=== PATIENT | female | born 2000 | race Caucasian/White ===

== ENCOUNTER 2020-12-03 16:47 | Emergency (ER) | payer BC, SELFPAY ==
[2020-12-03 16:50] VITALS: BP 131/85; PULSE 85; RESP 18; TEMP 36.6; O2SAT 99
--- NOTE | 2020-12-03 17:22 | ED.GENADULT ---
HPI - General Adult General Chief complaint: Unspecified Stated complaint: nosering stuck in nasal cavity Time Seen by Provider: 12/03/20 17:08 Source: patient, RN notes reviewed and old records reviewed History of Present Illness HPI narrative: 20-year-old female presents to emergency department for foreign body sensation in left nostril for the past 3 months. Patient states she got part of her nose ring stuck in the left nostril about 3 months ago. She recently got insurance, which prompted her to come to the emergency department. She states she sometimes gets some nasal congestion and bloody nose when she uses a Q-tip. No cough or sore throat. No chest pain or shortness of breath. Related Data Allergies Allergy/AdvReac Type Severity Reaction Status Date / Time No Known Allergies Allergy Unverified 12/14/15 13:21 Review of Systems Review of Systems: Narrative: CONSTITUTIONAL: Denies fever, chills, or sweats. EYES: Denies visual changes, redness, or discharge. ENT: Reports foreign body in left nostril, no rhinorrhea or congestion or sore throat CARDIOVASCULAR: Denies chest pain, palpitations, or edema. RESPIRATORY: Denies cough or dyspnea. GASTROINTESTINAL: Denies abdominal pain, nausea, vomiting, or diarrhea. GENITOURINARY: Denies dysuria or hematuria. SKIN: Denies rash or itching. MUSCULOSKELETAL: Denies back pain, joint pain, or myalgia. NEUROLOGIC: Denies headache, numbness, dizziness, or weakness. PSYCHIATRIC: Denies anxiety or depression. All systems reviewed & are unremarkable except as noted in HPI and below (ROS) [facility] Family History Family History Other Acute myocardial infarction Carcinoma of colon Social History Social History Smoking status: Never smoker Second hand tobacco smoke exposure: No Alcohol intake: never Gender identity (if verbalized by the patient): Female Exam Narrative: Exam Narrative: GENERAL: Well-appearing, well-nourished, and in no acute distress. HEAD: Normocephalic, atraumatic. EYES: PERRLA and EOMI. ENT: Nares clear, no rhinorrhea or epistaxis. Mucous membranes moist. Cannot appreciate a foreign body in left nostril. NECK: Supple. CHEST: Clear to auscultation. No respiratory distress. HEART: Regular rate and rhythm. No murmur heard. Normal peripheral pulses. ABDOMEN: Soft, nontender, nondistended, normal active bowel sounds. EXTREMITIES: Normal range of motion. No edema. SKIN: Warm, dry, no rash. NEURO: No focal deficits. Alert and oriented x3. PSYCH: Normal mood and affect. Course Vital Signs Vital signs: Vital Signs Temperature 36.6 C 12/03/20 16:50 Pulse Rate 85 12/03/20 16:50 Respiratory Rate 18 12/03/20 16:50 Blood Pressure 131/85 12/03/20 16:50 Pulse Oximetry 99 12/03/20 16:50 Temperature 36.6 C 12/03/20 16:50 Pulse Rate 85 12/03/20 16:50 Respiratory Rate 18 12/03/20 16:50 Blood Pressure 131/85 12/03/20 16:50 Pulse Oximetry 99 12/03/20 16:50 Medical Decision Making MDM Narrative Medical decision making narrative: Use nasal speculum, unable to see a foreign body in left nostril. Patient will need ENT to follow-up before scope of left nostril to visualize foreign body and removal. Medical Records Medical records reviewed: Yes I reviewed the external patient's medical records. Vital Signs Vital Signs: Vital Signs Temperature 36.6 C 12/03/20 16:50 Pulse Rate 85 12/03/20 16:50 Respiratory Rate 18 12/03/20 16:50 Blood Pressure 131/85 12/03/20 16:50 Pulse Oximetry 99 12/03/20 16:50 Temperature 36.6 C 12/03/20 16:50 Pulse Rate 85 12/03/20 16:50 Respiratory Rate 18 12/03/20 16:50 Blood Pressure 131/85 12/03/20 16:50 Pulse Oximetry 99 12/03/20 16:50 Discharge Plan Discharge Clinical Impression: Foreign body in nostril Qualifiers: Encounter type: initial encounter Rafat
== END 2020-12-03 18:12 | disposition home or self-care (01) ==
LOC: ANHED 17:52
PROVIDERS: Emergency Provider Emergency Medicine; PCP Family Medicine
DX: T17.1XXA Foreign body in nostril, initial encounter (principal)
CPT/HCPCS: 99281

== ENCOUNTER 2021-03-05 23:30 | Emergency (ER) | payer BC, SELFPAY ==
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
[2021-03-05 23:35] VITALS: BP 142/88; PULSE 103; RESP 18; TEMP 36.9; O2SAT 99
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
[2021-03-06 01:15] VITALS: BP 139/83; PULSE 91; RESP 18; O2SAT 97
== END 2021-03-06 01:17 | disposition home or self-care (01) ==
PROVIDERS: Emergency Provider Emergency Medicine; PCP Family Medicine
DX: S60.221A Contusion of right hand, initial encounter (principal); W22.8XXA Striking against or struck by other objects, initial encounter
CPT/HCPCS: 73130; 99283

== ENCOUNTER 2021-06-05 04:07 | Emergency (ER) | payer BC, SELFPAY ==
[2021-06-05 04:26] VITALS: BP 119/79; PULSE 89; RESP 18; TEMP 36.6; O2SAT 98
--- NOTE | 2021-06-05 04:56 | ED.GENADULT ---
HPI - General Adult General Chief complaint: Unspecified Stated complaint: abd pain, itchy throat, lice? Time Seen by Provider: 06/05/21 04:35 History of Present Illness HPI narrative: Patient is a 21-year-old female who presents ER with multiple complaints. First complaint is that she has had a sore throat for the last month. Is associated with white blisters or exudate. No fevers or chills or sweats. No difficulty breathing or swallowing. No known sick contacts. Has not been seen by a physician for this complaint. Patient also reports that her feet are itchy and peeling. This has been occurring over the last couple days. She is tried no medications. Lastly she is concerned that she may have fleas or lice because she is around a another individual 7 hours ago who looks like he was itching himself. Patient has seen no bugs on herself. She reports she often thinks that she has bugs on herself and has bug bomb to her room. This typically worsens after using methamphetamine. Her last use was tonight. Related Data Allergies Allergy/AdvReac Type Severity Reaction Status Date / Time No Known Allergies Allergy Verified 12/23/20 13:42 Review of Systems Review of Systems: All systems reviewed & are unremarkable except as noted in HPI and below Constitutional: Constitutional: Denies chills and Denies fever(s) ENT: Denies nasal congestion, Reports sore throat, Denies throat swelling and Denies tongue swelling Gastrointestinal: Gastrointestinal: Denies abdominal pain, Denies nausea and Denies vomiting Integumentary/Breasts: Skin/Breast: Reports dry skin, Denies new lesions, Denies sores, Denies unusual bruising and Denies wounds PMFSH Past Medical History Medical History (Updated 06/05/21 @ 05:03 by Isidro Rich MD) Acne vulgaris Acute sinusitis Bilateral breast lump Breast fibroadenoma Cystic acne vulgaris Fibrocystic breast Lower respiratory infection Obesity Recurrent AOM (acute otitis media) of both ears Family History Family History Other Acute myocardial infarction Carcinoma of colon Social History Social History (Updated 06/05/21 @ 04:59 by Isidro Rich MD) Smoking status: Never smoker Second hand tobacco smoke exposure: No Alcohol intake: never Substance use type: methamphetamine Gender identity (if verbalized by the patient): Female Exam Narrative: GENERAL: Well-appearing, well-nourished, and in no acute distress. HEAD: Normocephalic, atraumatic. EYES: PERRL and EOMI. ENT: Mucous membranes moist. Normal-appearing posterior oropharynx without tonsillar hypertrophy or exudate. Uvula midline without edema. CHEST: Clear to auscultation. No respiratory distress. HEART: Regular rate and rhythm. Normal peripheral pulses. ABDOMEN: Soft, nontender, nondistended. EXTREMITIES: Normal range of motion. No edema. Questionable development of athlete's foot with some dried peeling skin along the plantar aspect of his foot. SKIN: Warm, dry, no rash. No bug bites or infestation of lice. NEURO: Alert and oriented x3. PSYCH: Normal mood and affect. Very mild paranoia. Course Course Emergency Course: Discharge home. Recommend discontinuing methamphetamine use and to start using Lotrimin. Vital Signs Vital signs: Vital Signs Temperature 97.9 F 06/05/21 04:26 Pulse Rate 89 06/05/21 04:26 Respiratory Rate 18 06/05/21 04:26 Blood Pressure 119/79 06/05/21 04:26 Pulse Oximetry 98 06/05/21 04:26 Temperature 97.9 F 06/05/21 04:26 Pulse Rate 89 06/05/21 04:26 Respiratory Rate 18 06/05/21 04:26 Blood Pressure 119/79 06/05/21 04:26 Pulse Oximetry 98 06/05/21 04:26 Medical Decision Making Vital Signs Vital Signs: Vital Signs Temperature 97.9 F 06/05/21 04:26 Pulse Rate 89 06/05/21 04:26 Respiratory Rate 18 06/05/21 04:26 Blood Pressure 119/79 06/05/21 04:26 Pulse Oximetry 98 09/2
== END 2021-06-05 05:38 | disposition home or self-care (01) ==
LOC: ANHED 05:05
PROVIDERS: Emergency Provider Emergency Medicine; PCP Family Medicine
DX: B35.3 Tinea pedis (principal); F22 Delusional disorders; E66.9 Obesity, unspecified; Z68.29 Body mass index [BMI] 29.0-29.9, adult
CPT/HCPCS: 99283

== ENCOUNTER 2021-06-13 07:31 | Emergency (ER) | payer BC, SELFPAY ==
[2021-06-13 07:42] VITALS: BP 133/83; PULSE 106; RESP 16; TEMP 36.4; O2SAT 100
[2021-06-13 07:58] VITALS: BP 139/93; PULSE 119; RESP 18; TEMP 36.8; O2SAT 100
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
--- NOTE | 2021-06-13 10:36 | PC.NURSE ---
pt refusing Chest Xray, informed Lavelle PA
[2021-06-13 10:45] LABS: Basophils Percent Auto 0.4 % (0.2-1.2); Eosinophils Absolute Auto 0.1 K/mm3 (0-0.3); Eosinophils Percent Auto 1.2 % (0-4.4); Hematocrit 44.7 % (37.0-47.0); Hemoglobin 15.1 g/dL (12.0-15.0); Immature Granulocyte Absolute 0.04 K/mm3 (0.00-0.031); Immature Granulocyte Percent A 0.4 % (0-0.5); Lymphocytes Absolute Auto 2.08 K/mm3 (0.9-3.2); Lymphocytes Percent Auto 22.1 % (18.3-44.2); Mean Corpuscular HGB Conc 33.8 g/dl (32-36); Mean Corpuscular Hemoglobin 31.5 pg (26-34); Mean Corpuscular Volume 93.1 fl (80-100); Mean Platelet Volume 10.6 fl (7.4-10.4); Monocytes Absolute Auto 0.7 K/mm3 (0.1-0.6); Monocytes Percent Auto 7.3 % (2.6-8.5); Neutrophils Absolute Auto 6.5 K/mm3 (1.3-6.7); Neutrophils Percent Auto 68.6 % (45.5-73.1); Platelet Count Result 320 k/mm3 (150-375); Red Cell Distribution Width 12.4 % (11.5-14.5); White Blood Count 9.4 K/mm3 (4.5-10.0)
--- NOTE | 2021-06-13 10:50 | PC.NURSE ---
Refusing xray and ekg due to cost. MALKA waldrop.
[2021-06-13 10:56] LABS: Alanine Aminotransferase 12 U/L (4-35); Alkaline Phosphatase 45 U/L (38-126); Anion Gap 11 mmol/L (8-16); Aspartate Amino Transferase 22 U/L (14-36); Bilirubin,Total 0.8 mg/dL (0.2-1.3); Blood Urea Nitrogen 14 mg/dL (7-17); Calcium 9.5 mg/dL (8.4-10.2); Carbon Dioxide 25 mmol/L (22-30); Chloride 103 mmol/L (98-107); Estimated CRCL calculation 113 ml/min; Estimated Glomerular Filt Rate > 60; Glucose 91 mg/dL (65-110); Potassium 3.5 mmol/L (3.4-5.0); Sodium 139 mmol/L (137-145)
[2021-06-13] MEDS: LORazepam (*CRX) 1 MG TABLET PO (11:02)
[2021-06-13 11:08] LABS: Troponin I < 0.012 ng/mL (0.000-0.034)
[2021-06-13 11:09] LABS: Acetaminophen < 10 ug/mL (10-30); Ethanol < 10 mg/dL (<10); Salicylate < 1.0 mg/dL (2-20)
[2021-06-13 11:31] LABS: Add Urine Microscopic? YES; Appearance Urine Clear (Clear); Bilirubin Urine Negative (Negative); Blood Urine Negative (Negative); Color Urine Yellow (Yellow); Glucose Urine UA Negative (Negative); Ketones Urine Trace mg/dL (Negative); Leukocyte Esterase Ur Trace LEU/UL (Negative); Mucus Urine Rare /lpf; Nitrate Urine Negative (Negative); Protein Urine 1+ mg/dL (Negative); Specific Grav Ur 1.027 (1.001-1.035); Squamous Epithelial Cell Urine Many /hpf (Few); Urobilinogen Urine Negative mg/dL (<2.0); WBC Urine 0-3 /hpf
[2021-06-13 11:39] LABS: Barbiturate Screen Urine Negative (Negative); Benzodiazepines Screen Urine Negative (Negative)
[2021-06-13 11:52] LABS: Cannabinoid Screen Urine Positive (Negative); Cocaine Screen Urine Positive (Negative); Methadone Screen Urine Negative (Negative); Opiate Screen Urine Negative (Negative); Phencyclidine Screen Urine Negative (Negative)
[2021-06-13 12:05] LABS: Amphetamine Screen Urine Positive (Negative)
[2021-06-13 17:07] VITALS: BP 113/84; PULSE 107; RESP 18; O2SAT 100
== END 2021-06-13 17:09 | disposition home or self-care (01) ==
PROVIDERS: Emergency Provider Nurse Practitioner; PCP Family Medicine
DX: F19.10 Other psychoactive substance abuse, uncomplicated (principal); E66.9 Obesity, unspecified; Z68.28 Body mass index [BMI] 28.0-28.9, adult; F60.9 Personality disorder, unspecified; N60.19 Diffuse cystic mastopathy of unspecified breast
CPT/HCPCS: 36415; 80053; 80307; 81001; 84443; 84484; 85025; 99284; A9270

== ENCOUNTER 2021-07-04 12:58 | Emergency (ER) | payer BC, SELFPAY ==
[2021-07-04] VITALS (19 sets, daily range): BP systolic 103–116; BP diastolic 68–96; PULSE 78–157; RESP 8–20; O2SAT 100
--- NOTE | ~2021-07-04 | XR_ITS ---
EXAMINATION: XR chest 1V portable INDICATION: Altered mental status and chest pain TECHNIQUE: Portable AP chest at 1348 hours COMPARISON: None available FINDINGS: The lungs are free of acute opacities. There is no pleural effusion or pneumothorax. The ca rdiomediastinal silhouette is normal. The visualized bones and soft tissues are unremarkable. IMPRESSION: 1. No acute cardiopulmonary abnormality. Reviewed, dictated and finalized at location A.
--- NOTE | 2021-07-04 13:06 | ECG_ITS ---
Measurements Intervals [place] Rate: 118 P: 71 WV: 143 QRS: 45 QRSD: 85 T: 37 QT: 349 QTc: 489 Interpretive Statements SINUS TACHYCARDIA POSSIBLE LEFT ATRIAL ENLARGEMENT ST ELEVATION IN ANTEROLATERAL LEADS- PROBABLY EARLY REPOLARIZATION ABNORMALITY BASELINE ARTIFACT- I, II, III, AVR, AVL, AVF, V1, V3-V6 ABNORMAL ECG Electronically Signed On 07-04-2021 16:21:46 CDT by Zachariah Rai D.O.
--- NOTE | 2021-07-04 13:29 | PC.NURSE ---
Dr Stiles at bedside
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
[2021-07-04 13:49] LABS: Glucose Point of Care 85 mg/dl (65-105)
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
[2021-07-04 14:06] LABS: Barbiturate Screen Urine Negative (Negative); Benzodiazepines Screen Urine Negative (Negative)
[2021-07-04] MEDS: SODIUM CHLORIDE 0.9% IV 1,000 ML 999 ML IV CONT (14:09)
[2021-07-04] MEDS: LORazepam INJ (*CRX) 2 MG/ML VIAL 0.5 MG IV PUSH (14:09)
[2021-07-04 14:14] LABS: Basophils Absolute Auto 0.1 K/mm3 (0.0-0.1); Basophils Percent Auto 0.6 % (0.2-1.2); Eosinophils Percent Auto 0.2 % (0-4.4); Hematocrit 43.8 % (37.0-47.0); Hemoglobin 15.2 g/dL (12.0-15.0); Immature Granulocyte Absolute 0.03 K/mm3 (0.00-0.031); Immature Granulocyte Percent A 0.2 % (0-0.5); Lymphocytes Absolute Auto 2.14 K/mm3 (0.9-3.2); Lymphocytes Percent Auto 17.1 % (18.3-44.2); Mean Corpuscular HGB Conc 34.7 g/dl (32-36); Mean Corpuscular Hemoglobin 31.7 pg (26-34); Mean Corpuscular Volume 91.4 fl (80-100); Mean Platelet Volume 10.2 fl (7.4-10.4); Monocytes Absolute Auto 0.8 K/mm3 (0.1-0.6); Monocytes Percent Auto 6.5 % (2.6-8.5); Neutrophils Absolute Auto 9.4 K/mm3 (1.3-6.7); Neutrophils Percent Auto 75.4 % (45.5-73.1); Platelet Count Result 414 k/mm3 (150-375); Red Blood Count 4.79 M/mm3 (4.2-5.4); Red Cell Distribution Width 12.2 % (11.5-14.5); White Blood Count 12.5 K/mm3 (4.5-10.0)
[2021-07-04 14:19] LABS: Cannabinoid Screen Urine Positive (Negative); Cocaine Screen Urine Negative (Negative); Methadone Screen Urine Negative (Negative); Opiate Screen Urine Negative (Negative); Phencyclidine Screen Urine Negative (Negative)
[2021-07-04 14:25] LABS: Lactic Acid Reflex 1.6 mmol/L (0.7-2.1)
[2021-07-04 14:27] LABS: Alanine Aminotransferase 11 U/L (4-35); Alkaline Phosphatase 53 U/L (38-126); Anion Gap 16 mmol/L (8-16); Aspartate Amino Transferase 20 U/L (14-36); Blood Urea Nitrogen 10 mg/dL (7-17); Calcium 10.1 mg/dL (8.4-10.2); Carbon Dioxide 19 mmol/L (22-30); Chloride 107 mmol/L (98-107); Creatine Kinase 60 U/L (30-135); Estimated CRCL calculation 81 ml/min; Estimated Glomerular Filt Rate > 60; Glucose 92 mg/dL (65-110); Potassium 3.1 mmol/L (3.4-5.0); Sodium 142 mmol/L (137-145)
[2021-07-04 14:32] LABS: Partial Thromboplastin Time 26.5 SECONDS (22.3-36.8); Prothrombin Time 13.4 Seconds (11.1-14.7)
[2021-07-04 14:44] LABS: Acetaminophen < 10 ug/mL (10-30); Ammonia < 9 umol/L (9-30); Ethanol < 10 mg/dL (<10); Salicylate < 1.0 mg/dL (2-20)
[2021-07-04 14:50] LABS: Lipase 55 U/L (23-300)
[2021-07-04 15:18] LABS: Bilirubin Urine Negative (Negative); Blood Urine Negative (Negative); Color Urine Yellow (Yellow); Glucose Urine UA Negative (Negative); Ketones Urine 1+ mg/dL (Negative); Leukocyte Esterase Ur 1+ LEU/UL (Negative); Nitrate Urine Negative (Negative); Protein Urine Negative (Negative); Urobilinogen Urine 0.2 mg/dL (<2.0); pH Urine 7.5 (5.0-9.0)
[2021-07-04 15:27] LABS: Add Urine Microscopic? YES; Appearance Urine Sl Cloudy (Clear)
[2021-07-04 15:29] LABS: RBC Urine 0-2 /hpf (0-2)
[2021-07-04 15:30] LABS: Bacteria Urine Trace /hpf; Squamous Epithelial Cell Urine Few /hpf (Few)
[2021-07-04 15:37] LABS: Amphetamine Screen Urine Positive (Negative)
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
== END 2021-07-04 17:21 | disposition home or self-care (01) ==
PROVIDERS: Emergency Provider General Practice; PCP Family Medicine
DX: Z04.41 Encounter for examination and observation following alleged adult rape (principal); F19.10 Other psychoactive substance abuse, uncomplicated; E66.9 Obesity, unspecified; Z68.26 Body mass index [BMI] 26.0-26.9, adult; R00.0 Tachycardia, unspecified; R94.31 Abnormal electrocardiogram [ECG] [EKG]
CPT/HCPCS: 36415; 71045; 80053; 80307; 81001; 81025; 82140; 82550; 82948; 83605; 83690; 85025; 85610; 85730; 93005; 96361; 96374; 99284; J2060; J7030

== ENCOUNTER 2021-07-07 15:11 | Emergency (ER) | payer BC, OTHER, SELFPAY ==
[2021-07-07 15:17] VITALS: BP 130/66; PULSE 82; TEMP 36.9; O2SAT 99
--- NOTE | 2021-07-07 16:15 | PC.NURSE ---
LEFT MESSAGE FOR CALL FOR HELP TO COME BE WITH PT.
--- NOTE | 2021-07-07 16:55 | PC.NURSE ---
PT HAD UNDRESSED ONTO THE PAPER SHEET AND CHANGED INTO A GOWN UNTIL CALL FOR HELP ARRIVED. SHE THEN STATED I FEEL UNCOMFORTABLE IN A GOWN. I WANT TO CHANGE BACK INTO MY CLOTHES UNTIL CALL FOR HELP GETS HERE PT WAS ADVISED THAT HER CLOTHING IS NOW EVIDENCE AND THAT I NEED TO KEEP IT IN MY POSSESSION FOR CHAIN OF COMMAND. PT STATED I WANT TO PUT MY CLOTHES BACK ON UNTIL CALL FOR HELP GETS HERE PT THEN GIVEN PRIVACY TO PUT HER CLOTHING BACK ON AND PT WAS REQUESTED TO LEAVE THE PAPER SHEET ON THE FLOOR FOR EVIDENCE COLLECTION. STILL AWAITING CALL FOR HELP
--- NOTE | 2021-07-07 17:01 | PC.NURSE ---
PT SIGNED CONSENT FORM FOR EXAM BUT WISHES TO WAIT GROUNDING ENGINEER FOR HELP ADVOCATE TO BE WITH HER BEFORE GOING ANY FURTHER WITH EXAM.
--- NOTE | 2021-07-07 17:25 | PC.NURSE ---
PT STEPPED OUT OF HER ROOM AND STATED I DON'T KNOW WHAT TO DO I EXPLAINED TO HER THAT CALL FOR HELP CATALOGUE ILLUSTRATOR IS IN [place] AND WILL BE HERE [place]. PT AMBULATORY BACK TO HER ROOM
--- NOTE | 2021-07-07 17:35 | PC.NURSE ---
PT CAME BACK OUT OF HER ROOM AND STATED I JUST WANT TO LEAVE I REMINDED HER THAT WE HAD CONTACTED CALL FOR HELP TO COME IN TO BE HERE FOR HER AND THAT THEY ARE ON THEIR WAY [place]. PT AMBULATORY BACK TO HER ROOM.
--- NOTE | 2021-07-07 17:55 | PC.NURSE ---
CALL FOR HELP REPRESENTATIVES X2 HAVE ARRIVED TO THE ED AND WENT INTO THE PT'S ROOM TO SPEAK WITH HER.
[2021-07-07] MEDS: cefTRIAXone 1 GM VIAL IM (21:07)
[2021-07-07] MEDS: AZITHROMYCIN 250 MG TABLET 1000 MG PO (21:07)
[2021-07-07] MEDS: LIDOCAINE HCL 1% LOCAL INJ 20 ML VIAL (21:07)
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
[2021-07-07 21:51] VITALS: BP 122/81; PULSE 79; RESP 14; O2SAT 99
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
== END 2021-07-07 21:51 | disposition home or self-care (01) ==
PROVIDERS: Emergency Provider Family Medicine; PCP Family Medicine
DX: Z04.41 Encounter for examination and observation following alleged adult rape (principal)
CPT/HCPCS: 99199; A9270; J0696